=== PATIENT | female | born 1995 | race Caucasian/White ===

== ENCOUNTER 2016-12-08 14:21 | Emergency (ER) | payer OTHER, SELFPAY ==
[~2016-12-08] VITALS: Ht 170.2 cm; Wt 79.5 kg
[2016-12-08] MEDS ORDERED: PREVTAB2 (14:28)
[2016-12-08] MEDS ORDERED: AUGM875T28 PO (16:31)
[2016-12-08] MEDS ORDERED: CLAR5TAB7 PO (16:31)
[2016-12-08 16:42] VITALS: BP 122/76
== END 2016-12-08 16:44 | disposition home or self-care (01) ==
LOC: M ED 14:21
DX: J01.90 Acute sinusitis, unspecified (principal); Z79.3 Long term (current) use of hormonal contraceptives

== ENCOUNTER → 2017-06-13 | Outpatient (CLI) | payer BC | LOC: M ADAMS 14:30 | DX: S60.222A Contusion of left hand, initial encounter (principal); X58.XXXA Exposure to other specified factors, initial encounter; Y92.9 Unspecified place or not applicable | CPT/HCPCS: 73130 ==

== ENCOUNTER → 2017-07-03 | Outpatient (REF) | payer BC | LOC: M SFHCWAGY 11:35 | DX: Z12.4 Encounter for screening for malignant neoplasm of cervix (principal) | CPT/HCPCS: G0123 ==

== ENCOUNTER 2018-03-21 14:30 | Emergency (ER) | payer BC ==
[~2018-03-21] VITALS: Ht 170.2 cm; Wt 75.0 kg
[~2018-03-21 14:30] MED LIST: AUGM875T28 PO; CLAR5TAB7 PO; PREVTAB2
[2018-03-21 14:31] VITALS: BP 145/100
[2018-03-21] MEDS ORDERED: AUGM875T28 PO (14:58)
[2018-03-21] MEDS ORDERED: PERI0.126 PO (14:58)
[2018-03-21] MEDS ORDERED: NORCO, ANEXSIA 5/325MG TABLET (HYDROcodone/ACETAMINOPHEN) PO ONE (15:00)
[2018-03-21] MEDS ORDERED: AUGMENTIN 875 MG TAB PO ONE (15:00)
== END 2018-03-21 15:09 | disposition home or self-care (01) ==
LOC: M ED 14:30
DX: K02.9 Dental caries, unspecified (principal)

== ENCOUNTER → 2020-06-11 | Outpatient (REF) | payer BC, MEDICAID, OTHER ==
[~2020-06-11] MED LIST changes: +PERI0.126 PO
== END ==
LOC: M SFHCWAGY 16:44
PROVIDERS: ATTEND Nurse Practitioner Women's Health
DX: Z11.3 Encounter for screening for infections with a predominantly sexual mode of transmission (principal)

== ENCOUNTER 2020-11-04 10:06 | Emergency (ER) | payer MEDICAID, OTHER ==
[~2020-11-04] VITALS: Ht 172.7 cm; Wt 74.3 kg
[2020-11-04 10:06] VITALS: BP 136/83
[2020-11-04] MEDS ORDERED: ESTA0.25 (10:12)
[2020-11-04] MEDS ORDERED: CLEO300C2 PO (11:14)
[2020-11-04] MEDS ORDERED: CLINDAMYCIN 150MG CAPSULE PO ONE (11:15)
== END 2020-11-04 11:22 | disposition home or self-care (01) ==
LOC: M ED 10:06
DX: K04.7 Periapical abscess without sinus (principal); Z79.3 Long term (current) use of hormonal contraceptives

== ENCOUNTER 2023-07-20 09:20 | Emergency (ER) | payer BC, MEDICAID, OTHER ==
[~2023-07-20] VITALS: Ht 172.7 cm; Wt 76.0 kg
[~2023-07-20 09:20] MED LIST changes: +CLEO300C2 PO; +ESTA0.25
[2023-07-20 11:02] LABS: RSV AMPLIFICATION NEGATIVE (NEGATIVE)
[2023-07-20] MEDS ORDERED: ONDA4TAB6 PO (12:45)
[2023-07-20] MEDS ORDERED: OSEL75CA PO (12:45)
[2023-07-20] MEDS: ONDANSETRON 4MG ORAL DISINTEGRATING TAB PO ONE (12:49)
[2023-07-20 12:59] VITALS: BP 120/85; TEMP 97.9; O2SAT 100
== END 2023-07-20 13:00 | disposition home or self-care (01) ==
LOC: M ED 09:20
DX: J09.X2 Influenza due to identified novel influenza A virus with other respiratory manifestations (principal); Z88.1 Allergy status to other antibiotic agents

== ENCOUNTER → 2023-12-16 | Outpatient (REF) | payer BC ==
[~2023-12-16] MED LIST changes: +ONDA-282 PO; +OSEL75CA PO
== END ==
LOC: M SFHCWAGY 17:19
PROVIDERS: ATTEND Nurse Practitioner Family
DX: Z12.4 Encounter for screening for malignant neoplasm of cervix (principal)

== ENCOUNTER 2024-11-29 18:59 | Emergency (ER) | payer BC ==
[~2024-11-29] VITALS: Ht 172.7 cm; Wt 91.8 kg
[2024-11-29] MEDS: MORPHINE 4 MG/ML 1 ML VIAL IV ONE ×2 (19:35→20:27)
[2024-11-29] MEDS: ONDANSETRON 4MG 2ML VIAL IV ONE (19:35)
[2024-11-29] MEDS: NS (Normal Saline) 0.9% 1,000 ML IV ONE (19:36)
[2024-11-29 19:51] LABS: PLATELET COUNT, AUTOMATED 307 10^3/uL (150-450)
[2024-11-29] MEDS: PIPERACILLIN/TAZOBACTAM SOD 4.5 GM in DEXTROSE 5% (D5W) ADV/MINI-BAG 50 ML IV ONE (19:52)
[2024-11-29] MEDS: TETANUS/DIPHTH/ACEL. PERTUSSIS 0.5 ML SYR IM.IMMUN ONE (19:53)
[2024-11-29 20:05] LABS: INR 0.96
[2024-11-29 20:15] VITALS: BP 141/96; TEMP 97.8; O2SAT 100
[2024-11-29 20:24] LABS: CALCIUM LEVEL 8.8 MG/DL (8.5-10.1); CARBON DIOXIDE LEVEL 22 MMOL/L (20-31); CHLORIDE LEVEL 109 MMOL/L (98-107); CREATININE FOR GFR 0.78 MG/DL (0.55-1.30); GLOMERULAR FILTRATION RATE > 90.0 (>60); MAGNESIUM LEVEL 1.8 MG/DL (1.8-2.4); POTASSIUM SERUM 3.6 MMOL/L (3.5-5.1); SODIUM LEVEL 143 MMOL/L (136-145)
== END 2024-11-29 20:30 | disposition short-term general hospital (02) ==
LOC: EDBD 18:59 → M ED 18:59
DX: S61.511A Laceration without foreign body of right wrist, initial encounter (principal); S65.111A Laceration of radial artery at wrist and hand level of right arm, initial encounter; Y92.019 Unspecified place in single-family (private) house as the place of occurrence of the external cause; Y93.9 Activity, unspecified; Y99.9 Unspecified external cause status; W22.8XXA Striking against or struck by other objects, initial encounter; Z23 Encounter for immunization; Z88.1 Allergy status to other antibiotic agents; Z79.899 Other long term (current) drug therapy
CPT/HCPCS: 80048; 83735; 85027; 85610; 85730; 86850; 86900; 86901; 90471; 90715; 96365; 96375; 96376; 99284; J2405; J2543